=== PATIENT | male | born 1995 | race Caucasian/White ===

== ENCOUNTER 2019-02-17 17:32 | Emergency (ER) | payer OTHER ==
[~2019-02-17] VITALS: Ht 175.3 cm; Wt 73.6 kg
[2019-02-17] MEDS ORDERED: TGTSUS3 PO (17:37)
[2019-02-17] MEDS ORDERED: NS 1,000 ML IV ONE (19:00)
[2019-02-17] MEDS ORDERED: KETOROLAC 30 MG/ML VIAL (J1885) IV ONE (19:00)
[2019-02-17] MEDS ORDERED: ONDANSETRON 4MG/2ML VIAL (J2405) IV ONE (19:00)
[2019-02-17 20:39] LABS: BASO % 0.3 % (0.0-1.0); EOS # 0.1 10^3/uL (0.0-0.50); EOS % 1.6 % (0.0-3.0); HEMATOCRIT 44.4 % (42.0-52.0); HEMOGLOBIN 15.8 g/dl (13.5-17.5); LYMPH # 0.7 10^3/uL (1.5-6.5); LYMPH % 11.4 % (24.0-44.0); MEAN CORPUSCULAR HEMOGLOBIN 30.2 pg (27.0-33.0); MEAN CORPUSCULAR HGB CONC 35.6 g/dl (32.0-36.5); MEAN CORPUSCULAR VOLUME 84.9 fl (80.0-96.0); MONO # 0.6 10^3/uL (0.0-0.8); MONO % 9.3 % (0.0-5.0); NEUTROPHILS # 4.7 10^3/uL (1.8-7.7); NEUTROPHILS % 77.2 % (36.0-66.0); PLATELET COUNT, AUTOMATED 196 10^3/uL (150-450); RED BLOOD COUNT 5.23 10^6/uL (4.30-6.10); WHITE BLOOD COUNT 6.1 10^3/uL (4.0-10.0)
[2019-02-17 21:10] LABS: INFLUENZA A AMPLIFICATION NEGATIVE (NEGATIVE); INFLUENZA B AMPLIFICATION NEGATIVE (NEGATIVE)
[2019-02-17 21:16] LABS: ALBUMIN 4.2 GM/DL (3.2-5.2); ALT/SGPT 24 U/L (12-78); BILIRUBIN,DIRECT 0.3 MG/DL (0.0-0.2); BLOOD UREA NITROGEN 17 MG/DL (7-18); CALCIUM LEVEL 8.7 MG/DL (8.5-10.1); CARBON DIOXIDE LEVEL 26 MEQ/L (21-32); CHLORIDE LEVEL 105 MEQ/L (98-107); CREATININE FOR GFR 0.92 MG/DL (0.70-1.30); GLOMERULAR FILTRATION RATE > 60.0 (>60); GLUCOSE, FASTING 99 MG/DL (70-100); LIPASE 88 U/L (73-393); POTASSIUM SERUM 4.1 MEQ/L (3.5-5.1); SODIUM LEVEL 137 MEQ/L (136-145); TOTAL PROTEIN 6.7 GM/DL (6.4-8.2)
[2019-02-17] MEDS ORDERED: ISOVUE-370 76% 125ML VIAL (Q9967 PER ML) As Ordered ONE (21:26)
--- NOTE | 2019-02-17 23:11 | REPVR ---
EXAM: CT Head Without Contrast EXAM DATE/TIME: 02/17/2019 10:21 PM CLINICAL HISTORY: 24 years old, male; Pain; Headache; Additional info: New onset severe headache TECHNIQUE: Imaging protocol: Axial computed tomography images of the head/brain without contrast. Radiation optimization: All CT scans at this facility use at least one of these dose optimization techniques: automated exposure control; mA and/or kV adjustment per patient size (includes targeted exams where dose is matched to clinical indication); or iterative reconstruction. COMPARISON: No relevant prior studies available. FINDINGS: Brain: Normal. No hemorrhage. No significant white matter disease. No edema. Ventricles: Normal. No ventriculomegaly. Bones/joints: Unremarkable. No acute fracture. Sinuses: Visualized sinuses are unremarkable. No acute sinusitis. Mastoid air cells: Visualized mastoid air cells are unremarkable. No mastoid effusion. Soft tissues: Unremarkable. IMPRESSION: No acute intracranial abnormality. Electronically signed by: Ellen Murillo On 02/17/2019 23:10:37 PM
--- NOTE | 2019-02-17 23:23 | REPVR ---
EXAM: CT Abdomen and Pelvis With Contrast EXAM DATE/TIME: 02/17/2019 10:21 PM CLINICAL HISTORY: 24 years old, male; Pain; Abdominal pain; Generalized; Additional info: Bilateral flank pain/periumbilic pain TECHNIQUE: Imaging protocol: Axial computed tomography images of the abdomen and pelvis with intravenous contrast. Coronal and sagittal reformatted images were created and reviewed. Radiation optimization: All CT scans at this facility use at least one of these dose optimization techniques: automated exposure control; mA and/or kV adjustment per patient size (includes targeted exams where dose is matched to clinical indication); or iterative reconstruction. Contrast material: ISOVUE 370 Contrast volume: 100 ml Contrast route: IV COMPARISON: No relevant prior studies available. FINDINGS: Lower thorax: 3 mm nodule in the left lower lobe (series 204 image 7). ABDOMEN: Liver: Normal. No mass. Gallbladder and bile ducts: Normal. No calcified stones. No ductal dilation. Pancreas: Normal. No ductal dilation. Spleen: Normal. No splenomegaly. Adrenals: Normal. No mass. Kidneys and ureters: Normal. No hydronephrosis. Stomach and bowel: There is some mild stranding of the perienteric fat on the antimesenteric side of small bowel loops in the left upper quadrant. Inflammatory stranding Also extending to the adjacent descending colon. No bowel wall thickening. Appendix: No evidence of appendicitis. PELVIS: Bladder: Unremarkable as visualized. Reproductive: Unremarkable as visualized. ABDOMEN and PELVIS: Intraperitoneal space: Normal. No free air. No significant fluid collection. Bones/joints: No acute fracture. No dislocation. Soft tissues: Unremarkable. Vasculature: Normal. No abdominal aortic aneurysm. Lymph nodes: Scattered subcentimeter lymph nodes noted within the mesenteric fat No enlarged lymph nodes. IMPRESSION: 1. Faint inflammatory stranding of the perienteric fat predominately on the antimesenteric side in the left upper quadrant. No bowel wall thickening. No bowel dilatation. Inflammatory bowel disease is among the diagnostic considerations. 2. Scattered lymph nodes within the mesentery notable predominantly for their increased number could represent mesenteric adenitis. 3. Single nodule in the left lower lobe.If patient does not have known cancer, follow up should be based on clinical information because of the low risk of cancer in this age group. (Mike et al., Fleischner Society, 2017) Electronically signed by: Ellen Murillo On 02/17/2019 23:23:25 PM
[2019-02-17] MEDS ORDERED: ONDA4TAB6 PO (23:53)
[2019-02-18 00:05] VITALS: BP 102/47
--- NOTE | 2019-02-19 10:53 | ED PDOC ---
Post-Departure Follow-Up ft chirag flores faxed formal report of ct abd/p for fu Natalee Ingram MD Feb 19, 2019 10:53
== END 2019-02-18 00:29 | disposition home or self-care (01) ==
LOC: M ED 17:32
DX: I88.0 Nonspecific mesenteric lymphadenitis (principal); R51 Headache; M54.2 Cervicalgia
CPT/HCPCS: 70450; 74177; 80048; 80076; 81001; 83605; 83690; 85025; 87040; 87502; 96361; 96374; 96375; 99284; J1885; J2405; Q9967

== ENCOUNTER → 2019-03-05 | Outpatient (CLI) | payer OTHER ==
[~2019-03-05] MED LIST: CONRAY-43 43% 50ML VIAL (Q9960) As Ordered ONE; ONDA4TAB6 PO; PROHANCE 279.3MG/ML 5ML VIAL (A9576) As Ordered ONE; TGTSUS3 PO
--- NOTE | 2019-03-05 11:05 | REP ---
MR ARTHROGRAPHY LEFT SHOULDER: With pre and post intra-articular gadolinium enhanced saline injected imaging: HISTORY: Left shoulder pain. No comparison imaging available. TECHNIQUE: The injection procedure is performed and dictated separately. Pre- and post intra-articular gadolinium enhanced saline injected imaging is acquired. Imaging planes include axial, oblique coronal, oblique sagittal and ABER projection images. T1- and T2-weighted scans are included with and without fat saturation. MRI FINDINGS: Pre-injection MR imaging demonstrates normal alignment of the glenohumeral and acromioclavicular joints. There is swelling and increased signal intensity diffusely in the supraspinatus tendon consistent with tendinosis. A linear pattern of T2 hyperintense signal is seen in the superficial bursal fibers of the distal supraspinatus tendon consistent with partial thickness lesion. No full-thickness cuff tear is seen. There is minimal subacromial subdeltoid bursal fluid. Biceps, infraspinatus, and subscapularis tendons appear intact on pre-injection imaging. Post injection imaging demonstrates good filling and enhancement of the left glenohumeral articulation. There is some injection artifact along the genu of the biceps tendon. There is no evidence of anterior or posterior labral tear. No superior labral disruption is seen. There is no evidence of full-thickness cuff tear on post injection imaging. IMPRESSION: Tendonitis tendinosis changes in the supraspinatus tendon. Small subacromial subdeltoid bursal fluid on pre-injection imaging. No full-thickness cuff tear seen. Otherwise negative. Electronically Signed by Hai Espinoza MD 03/05/2019 05:26 P
--- NOTE | 2019-03-05 17:31 | REP ---
Procedure: Left shoulder arthrogram The procedure was performed under the direct supervision of Dr. Espinoza. History: Left shoulder pain The benefits and risks including but not limited to pain, infection, bleeding and anaphylaxis were explained to the patient and informed consent was obtained. Technique: The left glenohumeral joint space was localized using fluoroscopic guidance. The skin was prepped and draped in a sterile fashion. 1% lidocaine was used as a local anesthetic. Using fluoroscopic guidance a 22 gauge spinal needle was inserted and advanced into the joint. 0.5 ml of Conray 43 was injected to verify placement. 11 ml of a solution containing 20 ml of sterile saline and 0.15 ml of ProHance was injected into the joint. The needle was removed and the patient was taken to MRI for postprocedural imaging. The the patient tolerated the procedure well and there were no immediate complications. Less than 6 seconds of fluoro time was utilized for this procedure. Reviewed by ALIYAH Gupta 03/05/2019 03:51 P Electronically Signed by Hai Espinoza MD 03/05/2019 05:21 P
== END ==
LOC: M RADPRO 06:19 → EDUNIT# 07:00
PROVIDERS: ATTEND Physician Assistant
DX: M25.512 Pain in left shoulder (principal); M75.82 Other shoulder lesions, left shoulder
CPT/HCPCS: 23350; 73223; 77002; A9576; Q9960